=== PATIENT | male | born 1930 | race Two or more races ===

== ENCOUNTER 2020-10-20 16:07 | Inpatient (IN) | payer MEDICARE, OTHER ==
[~2020-10-20] VITALS: Ht 175.3 cm; Wt 76.2 kg
--- NOTE | 2020-10-20 16:24 | NUR ---
Brought by rescue ambulance; the patient just got discharged from [facility] yesterday. Per counter clerk farm equipment parts report, the patient complained of shortness of breath, EKG in the field shows atrial fibrillation with rapid ventricular response.
--- NOTE | 2020-10-20 16:25 | NUR ---
Hep-Lock initiated; right AC #20; labs drawn and sent to lab
--- NOTE | 2020-10-20 16:25 | NUR ---
The patient was placed on the ER 13; placed on school bus monitor with heart rate showing [address] Adamson at bedside; with orders for EKG
[2020-10-20 16:37] LABS: BASOPHILS % (AUTO) 0.4 % (0.0-2.0); EOSINOPHILS % (AUTO) 0.5 % (0.0-6.0); HEMATOCRIT 33 % (39-51); LYMPHOCYTES # (AUTO) 0.8 /CMM (0.8-4.8); LYMPHOCYTES % (AUTO) 8.1 % (20.0-44.0); MEAN CORPUSCULAR HGB CONC 33 g/dl (31.0-36.0); MEAN CORPUSCULAR VOLUME 92 fL (80-96); MONOCYTES # (AUTO) 0.8 /CMM (0.1-1.30); MONOCYTES % (AUTO) 8.2 % (2.0-12.0); NEUTROPHILS # (AUTO) 7.8 /CMM (1.8-8.9); NEUTROPHILS % (AUTO) 82.8 % (43.0-81.0); PLATELET COUNT (AUTO) 444 /CMM (150-450); RED BLOOD CELL COUNT(AUTO) 3.63 MIL/uL (4.5-6.0); WHITE BLOOD COUNT (AUTO) 9.4 K/uL (4.3-11.0)
[2020-10-20 16:42] LABS: CALCIUM, SERUM 8.9 mg/dL (8.5-10.1); CARBON DIOXIDE 25 mmol/L (21-32); CHLORIDE 101 mmol/L (98-107); CREATININE 1.7 mg/dL (0.6-1.3); GLUCOSE 149 mg/dL (74-106); POTASSIUM 4.4 mmol/L (3.5-5.1); SODIUM SERUM 137 mmol/L (136-145); UREA NITROGEN, BLOOD 31 mg/dL (7-18)
[2020-10-20 16:47] LABS: ALANINE AMINOTRANSFERASE 14 U/L (12-78); ALBUMIN 2.7 g/dL (3.4-5.0); ALKALINE PHOSPHATASE 64 U/L (46-116); ASPARTATE AMINOTRANSFERASE 15 U/L (15-37); B-TYPE NATRIURETIC PEPTIDE 1096 PG/ML (0-125); BILIRUBIN,DIRECT 0.3 mg/dL (0.0-0.2); BILIRUBIN,TOTAL 1.1 mg/dL (0.2-1.0); TOTAL PROTEIN, SERUM 6.4 g/dL (6.4-8.2)
[2020-10-20] MEDS ORDERED: DILTIAZEM HCL 25 MG IV ONE (16:48)
[2020-10-20] MEDS ORDERED: DILTIAZEM HCL 50 MG IV IV ONE (17:00)
[2020-10-20] MEDS ORDERED: IV NS 0.9% 500 ML BAG IV ONE (17:00)
--- NOTE | 2020-10-20 17:00 | NUR ---
Dr Adamson at bedside Phone utilized for [facility] docking pilot. Medicated w/cardizem/orders
[2020-10-20] MEDS ORDERED: AMIODARONE 450 MG in IV D5W 250 ML IV ONE (17:30)
[2020-10-20] MEDS ORDERED: AMIODARONE 150 MG/3 ML VIAL IV ONE (17:30)
[2020-10-20] MEDS ORDERED: APIX2.5T PO (17:38)
[2020-10-20] MEDS ORDERED: DUTA0.5C PO (17:38)
[2020-10-20] MEDS ORDERED: DORZ10DR13 EACHEYE (17:38)
[2020-10-20] MEDS ORDERED: CLOP75TA15 PO (17:38)
[2020-10-20] MEDS ORDERED: ERGO500014 PO (17:38)
[2020-10-20] MEDS ORDERED: DEXL60CA3 PO (17:38)
[2020-10-20] MEDS ORDERED: AMIODARONE 150 MG in IV D5W 100 ML IV ONE (18:00)
--- NOTE | 2020-10-20 18:13 | NUR ---
Amiodarone started as per MD orders. Pt made of plan of care. For admission- await bed
[2020-10-20] MEDS ORDERED: HYDROCODONE/APAP 5/325MG TABLET PO PRN (18:30)
[2020-10-20] MEDS ORDERED: ACETAMINOPHEN 325 MG TABLET PO PRN (18:30)
[2020-10-20] MEDS ORDERED: MAGNESIUM HYDROXIDE 30 ML UDC PO PRN (18:30)
[2020-10-20] MEDS ORDERED: ZOLPIDEM TARTRATE 5 MG TABLET PO PRN (18:30)
[2020-10-20] MEDS ORDERED: MAG HYDROX/AL HYDROX/SIMETH 30 ML UDC PO PRN (18:30)
[2020-10-20] MEDS ORDERED: ONDANSETRON HCL/PF 4 MG/2 ML VIAL IVP PRN (18:30)
[2020-10-20] MEDS ORDERED: Z GUARD REMEDY 2 OZ OINT TP PRN (18:30)
--- NOTE | 2020-10-20 19:15 | NUR ---
LAB CALLED REGARDING NEGATIVE COVID RESULT
--- NOTE | 2020-10-20 19:24 | NUR ---
Report to MILY Rajput for continuity of care
[2020-10-21] MEDS ORDERED: ZOLPIDEM TARTRATE 5 MG TABLET ONE (00:22)
--- NOTE | 2020-10-21 00:40 | NUR ---
PT AWAKE, UNABLE TO SLEEP. PER REQUEST, WILL MEDICATE PT WITH AMBIEN 5MG PO X1 NOW PER MD PRN ORDER
--- NOTE | 2020-10-21 02:14 | NUR ---
PT SLEEPING COMFORTABLY IN BED. VITAL SIGNS STABLE. STILL ON CONTINUOUS PICKING SUPERVISOR AND PULSE OX, WILL CONTINUE TO MONITOR
[2020-10-21 03:06] LABS: BASOPHILS % (AUTO) 0.4 % (0.0-2.0); EOSINOPHILS % (AUTO) 1.2 % (0.0-6.0); HEMATOCRIT 27 % (39-51); HEMOGLOBIN 9.3 g/dL (13.5-17.5); LYMPHOCYTES # (AUTO) 0.9 /CMM (0.8-4.8); LYMPHOCYTES % (AUTO) 16.7 % (20.0-44.0); MEAN CORPUSCULAR HGB CONC 34 g/dl (31.0-36.0); MEAN CORPUSCULAR VOLUME 91 fL (80-96); MONOCYTES # (AUTO) 0.6 /CMM (0.1-1.30); MONOCYTES % (AUTO) 11.8 % (2.0-12.0); NEUTROPHILS # (AUTO) 3.8 /CMM (1.8-8.9); NEUTROPHILS % (AUTO) 69.9 % (43.0-81.0); PLATELET COUNT (AUTO) 332 /CMM (150-450); WHITE BLOOD COUNT (AUTO) 5.4 K/uL (4.3-11.0)
[2020-10-21 03:09] LABS: CALCIUM, SERUM 7.8 mg/dL (8.5-10.1); CREATININE 1.3 mg/dL (0.6-1.3); PHOSPHORUS 2.7 mg/dL (2.5-4.9); POTASSIUM 3.7 mmol/L (3.5-5.1)
[2020-10-21 03:22] LABS: THYROID STIMULATING HORMONE 1.234 uIU/mL (0.358-3.74)
--- NOTE | 2020-10-21 04:35 | NUR ---
NOTED SINUS RHYTHM ON LOBBY CONCIERGE. PER STEPHANIE FISHMAN, REPORTS DEVELOPER WILL D/C AMIODARONE DRIP AT THIS TIME. PT RESTING COMFORTABLY IN BED. VITAL SIGNS STABLE. STILL ON CONTINUOUS LOBBY CONCIERGE AND PULSE OX. CALL LIGHT WITHIN REACH, WILL CONTINUE TO MONITOR
--- NOTE | 2020-10-21 07:36 | NUR ---
REPORT GIVEN TO MILY ZENG FOR FARIDEH
--- NOTE | 2020-10-21 09:00 | NUR ---
PATIENT A/OX3, FARSI SPEAKING. BREATHING EVEN AND UNLABORED, ON O2 AT 3LPM VIA NC WITH SPO2 OF 97%. NO DISTRESS NOTED.
--- NOTE | 2020-10-21 10:24 | NUR ---
LANGUAGE: ROSEANN, ASKED FOR ALLERGIES, JUSTEN.
[2020-10-21] MEDS: DUTASTERIDE (0.5 MG) 0.5 MG CAPSULE PO SCH (11:55)
[2020-10-21] MEDS: APIXABAN 2.5 MG TABLET PO SCH ×2 (11:56→16:11)
[2020-10-21] MEDS: POTASSIUM CHLORIDE 20 MEQ TAB.PRT.SR PO SCH ×3 (11:57→13:57)
[2020-10-21] MEDS: CLOPIDOGREL BISULFATE 75 MG TABLET PO SCH (11:57)
[2020-10-21] MEDS: AMIODARONE HCL 200 MG TABLET PO SCH ×2 (11:58→16:11)
[2020-10-21] MEDS: PANTOPRAZOLE 40 MG TABLET.DR PO SCH (11:58)
[2020-10-21] MEDS: TIMOLOL MAL/DORZOLAM HCL OPHTH 10 ML BOTTLE EACHEYE SCH ×2 (12:00→21:35)
--- NOTE | 2020-10-21 12:00 | NUR ---
PATIENT ATE LUNCH AND TOLERATED WELL. BREATHING EVEN AND UNLABORED, DENIES PAIN. NO DISTRESS NOTED.
[2020-10-21] MEDS: FUROSEMIDE 40 MG/4 ML VIAL IV SCH ×3 (12:03→19:00)
--- NOTE | 2020-10-21 16:43 | NUR ---
PATIENT A/OX3, BREATHING EVEN AND UNLABORED, NO SOB NOTED. NEEDS ATTENDED.
[2020-10-21 17:19] LABS: BILIRUBIN,URINE NEGATIVE (NEGATIVE); BLOOD, URINE NEGATIVE Ery/uL (NEGATIVE); COLOR,URINE YELLOW (YELLOW); LEUKOCYTE ESTERASE ,URINE NEGATIVE (NEGATIVE); NITRITE, URINE NEGATIVE (NEGATIVE); PROTEIN,URINE NEGATIVE (NEGATIVE); UGLUCOSE NEGATIVE (NEGATIVE); UROBILINOGEN,URINE 0.2 EU/dL (0.2)
[2020-10-21 17:44] LABS: EOSINOPHIL,URINE None Seen
--- NOTE | 2020-10-21 19:53 | NUR ---
DAUGHTER - CHANELL ESQUEDA [phone]
--- NOTE | 2020-10-21 20:00 | NUR ---
REC'D REPORT FROM AM SHIFT. REC'D PT, AWAKE/ALERT, -SOB NOTED, DENIES PAIN/DISCOMFORT, NO CP NOTED. VSS, NOT ANY IN ANY DISTRESS, WCTM
--- NOTE | 2020-10-22 05:29 | NUR ---
PT REQ FOR PAIN MEDS, [address] PAIN ON [address] 5 GIVEN. WILL REASSESS. VSS.
[2020-10-22] MEDS ORDERED: HYDROCODONE/APAP 5/325MG TABLET ONE (05:30)
[2020-10-22 05:35] LABS: BASOPHILS % (AUTO) 0.4 % (0.0-2.0); EOSINOPHILS % (AUTO) 0.1 % (0.0-6.0); HEMATOCRIT 33 % (39-51); HEMOGLOBIN 11.1 g/dL (13.5-17.5); LYMPHOCYTES # (AUTO) 0.8 /CMM (0.8-4.8); LYMPHOCYTES % (AUTO) 7.8 % (20.0-44.0); MEAN CORPUSCULAR HGB CONC 34 g/dl (31.0-36.0); MEAN CORPUSCULAR VOLUME 91 fL (80-96); MONOCYTES # (AUTO) 1.5 /CMM (0.1-1.30); MONOCYTES % (AUTO) 14.7 % (2.0-12.0); NEUTROPHILS # (AUTO) 8.1 /CMM (1.8-8.9); PLATELET COUNT (AUTO) 365 /CMM (150-450); RED BLOOD CELL COUNT(AUTO) 3.62 MIL/uL (4.5-6.0); WHITE BLOOD COUNT (AUTO) 10.5 K/uL (4.3-11.0)
[2020-10-22 05:46] LABS: ALANINE AMINOTRANSFERASE 11 U/L (12-78); ALBUMIN 2.5 g/dL (3.4-5.0); ALKALINE PHOSPHATASE 61 U/L (46-116); ASPARTATE AMINOTRANSFERASE 10 U/L (15-37); BILIRUBIN,TOTAL 1.5 mg/dL (0.2-1.0); CALCIUM, SERUM 9.1 mg/dL (8.5-10.1); CARBON DIOXIDE 28 mmol/L (21-32); CHLORIDE 102 mmol/L (98-107); CREATININE 1.5 mg/dL (0.6-1.3); GLUCOSE 110 mg/dL (74-106); PHOSPHORUS 2.8 mg/dL (2.5-4.9); SODIUM SERUM 139 mmol/L (136-145); TOTAL PROTEIN, SERUM 6.4 g/dL (6.4-8.2); UREA NITROGEN, BLOOD 25 mg/dL (7-18)
[2020-10-22] MEDS: TIMOLOL MAL/DORZOLAM HCL OPHTH 10 ML BOTTLE EACHEYE SCH (08:23)
[2020-10-22] MEDS: AMIODARONE HCL 200 MG TABLET PO SCH ×3 (08:24→18:00)
[2020-10-22] MEDS: DUTASTERIDE (0.5 MG) 0.5 MG CAPSULE PO SCH (08:24)
[2020-10-22] MEDS: APIXABAN 2.5 MG TABLET PO SCH ×2 (08:25→18:00)
[2020-10-22] MEDS: CLOPIDOGREL BISULFATE 75 MG TABLET PO SCH (08:25)
[2020-10-22] MEDS: PANTOPRAZOLE 40 MG TABLET.DR PO SCH (08:25)
[2020-10-22] MEDS ORDERED: ACETAMINOPHEN 325 MG TABLET ONE (18:47)
[2020-10-22] MEDS ORDERED: ACETAMINOPHEN 650 MG/20.3 ML UDC PO PRN (19:00)
--- NOTE | 2020-10-22 20:10 | NUR ---
PT DISCHARGED HOME. IV removed. Catheter intact and site benign. Pressure and 4x4 applied to site. No bleeding noted.Picked up by ambulance.
[2020-10-23 00:03] VITALS: BP 121/63
[2020-10-24] MEDS ORDERED: ERGOCALCIFEROL (VITAMIN D 2) 50,000 UNIT CAPSULE PO SCH (09:00)
== END 2020-10-22 20:00 | disposition home or self-care (01) | DRG 280 ==
LOC: ER 16:10 → TRANSITION 22:57
PROVIDERS: ADMIT Student in an Organized Health Care Education/Training Program; ATTEND Nurse Practitioner Acute Care
DX: I48.91 Unspecified atrial fibrillation (principal); I21.A1 Myocardial infarction type 2; N17.0 Acute kidney failure with tubular necrosis; J96.01 Acute respiratory failure with hypoxia; I50.33 Acute on chronic diastolic (congestive) heart failure; E44.0 Moderate protein-calorie malnutrition; D68.59 Other primary thrombophilia; J84.9 Interstitial pulmonary disease, unspecified; I25.10 Atherosclerotic heart disease of native coronary artery without angina pectoris; Z20.828 Contact with and (suspected) exposure to other viral communicable diseases; Z79.01 Long term (current) use of anticoagulants; Z79.02 Long term (current) use of antithrombotics/antiplatelets; Z79.899 Other long term (current) drug therapy; D63.8 Anemia in other chronic diseases classified elsewhere; N40.0 Benign prostatic hyperplasia without lower urinary tract symptoms; H40.9 Unspecified glaucoma; Z91.14 Patient's other noncompliance with medication regimen; E88.9 Metabolic disorder, unspecified; N18.9 Chronic kidney disease, unspecified
CPT/HCPCS: 36415; 71045-TC; 80048-TC; 80053-TC; 80061-TC; 80076-TC; 83735-TC; 83880; 84100-TC; 84443-TC; 84484-TC; 85025-TC; 85730-TC; 87081-TC; 93307-TC; 97112-TC; 97530-TC; C9803; G0378; J0282; J1940; J3490; J7040; J7060

== ENCOUNTER 2021-05-26 23:54 | Emergency (ER) | payer MEDICARE, OTHER ==
[~2021-05-26] VITALS: Ht 170.2 cm; Wt 78.0 kg
[2021-05-26 23:54] VITALS: BP 140/81
[~2021-05-26 23:54] MED LIST: APIX2.5T PO; CLOP75TA15 PO; DEXL60CA3 PO; DORZ10DR13 EACHEYE; DUTA0.5C PO; ERGO500093 PO
== END 2021-05-27 01:26 | disposition home or self-care (01) ==
LOC: ER 23:54
DX: K13.79 Other lesions of oral mucosa (principal); Z79.899 Other long term (current) drug therapy; Z71.1 Person with feared health complaint in whom no diagnosis is made